=== PATIENT | male | born 1965 | race African-American/Black ===

== ENCOUNTER → 2016-11-25 | Outpatient (CLI) | payer SELFPAY ==
--- NOTE | 2016-11-26 08:52 | CT ---
HISTORY: Screening, hypertension, family history Cardiac calcium scoring. Technique: Multiple axial images of the chest were obtained on a [address] from the aortic arch to the base of the heart with noncontrast prospective gating.AEC was utilized. Findings: A total calcium score of 10 is observed. The score results in low, less than 10%, likelihood of benita nary events given the age and sex matched cohort analysis. Surrounding soft tissues and osseous structures are unremarkable. IMPRESSION: Minimal identifiable plaque. Reported By:
== END ==
LOC: RAD 12:03
PROVIDERS: ATTEND Internal Medicine Cardiovascular Disease
DX: Z13.6 Encounter for screening for cardiovascular disorders (principal)